=== PATIENT | male | born 1980 | race Caucasian/White ===

== ENCOUNTER 2018-01-19 16:19 | Emergency (ER) | payer BC ==
[~2018-01-19] VITALS: Ht 170.2 cm; Wt 83.9 kg
[2018-01-19] MEDS ORDERED: FLONASE ALLERG9.9 ML NAS (16:46)
[2018-01-19] MEDS ORDERED: ZYRTEC-D TABLE1 EACH PO (16:46)
== END 2018-01-19 16:52 | disposition home or self-care (01) ==
LOC: ED 16:19
DX: S09.90XA Unspecified injury of head, initial encounter (principal); J32.9 Chronic sinusitis, unspecified; W19.XXXA Unspecified fall, initial encounter; Y93.18 Activity, surfing, windsurfing and boogie boarding; Y92.89 Other specified places as the place of occurrence of the external cause
CPT/HCPCS: 99283

== ENCOUNTER 2018-03-08 11:20 | Emergency (ER) | payer BC ==
[~2018-03-08] VITALS: Ht 170.2 cm; Wt 83.9 kg
[~2018-03-08 11:20] MED LIST: FLONASE ALLERG9.9 ML NAS; ZYRTEC-D TABLE1 EACH PO
[2018-03-08] MEDS ORDERED: IBUPROFEN600 MG PO (13:15)
[2018-03-08] MEDS ORDERED: HYDROCODON-ACE1 EA11 PO (13:15)
[2018-03-08] MEDS ORDERED: ZOFRAN ODT4 MG PO (13:15)
== END 2018-03-08 13:23 | disposition home or self-care (01) ==
LOC: ED 11:20
DX: N13.2 Hydronephrosis with renal and ureteral calculous obstruction (principal)
CPT/HCPCS: 74176; 81001; 99284